=== PATIENT | female | born 1935 | race Two or more races ===

== ENCOUNTER 2017-05-11 21:09 | Emergency (ER) | payer OTHER ==
[~2017-05-11] VITALS: Ht 157.5 cm; Wt 81.6 kg
[~2017-05-11 21:09] MED LIST: AMLO5TAB2 PO; ASPI81TA27 PO; BENA40TA7 PO; CARV3.1240 PO; FURO40TA4 PO; ISOS60TA24 PO; POTA10TA51 PO; SIMV-13 PO
[2017-05-11 22:13] LABS: Basophils # (auto) 0 uL; Basophils % (auto) 0.4 % (0.0-2.0); Eosinophils # (auto) 0.4 uL; Eosinophils % (auto) 6.7 % (0.0-7.0); Hematocrit 39.3 % (36.0-46.0); Hemoglobin 12.6 g/dL (12.2-16.2); Lymphocytes # (auto) 1.5 uL; Lymphocytes % (auto) 28.6 % (10.0-50.0); Mean Corpuscular Hemoglobin 25.2 pg (28.0-32.0); Mean Corpuscular Hgb Conc. 32.1 g/dL (32.0-36.0); Mean Corpuscular Volume 78.4 fL (80.0-100.0); Mean Platelet Volume 8.4 fL (7.4-10.4); Monocytes # (auto) 0.4 uL; Monocytes % (auto) 8.3 % (0.0-12.0); Nucleated Red Blood Cells % 0.1 %; Platelet Count (auto) 245 10^3/uL (140-450); Red Cell Distribution Width 14.9 % (11.6-16.0); White Blood Cell 5.3 10^3/uL (4.4-10.8)
[2017-05-11 22:14] LABS: Temperature: 22.2 C (20.0-25.0)
[2017-05-11 22:27] LABS: Albumin 3.5 g/dL (3.4-5.0); Alkaline Phosphatase 94 U/L (45-117); Anion Gap 7 (5-15); Aspartate Aminotransferase 41 U/L (15-37); BUN/Creatinine Ratio 16.5; Bilirubin, Total 0.2 mg/dL (0.2-1.0); Blood Urea Nitrogen 14 mg/dL (7-18); Calcium 9.7 mg/dL (8.5-10.1); Carbon Dioxide 27 mmol/L (21-32); Chloride 106 mmol/L (98-107); GFR African American 83 mL/min; GFR Non-African American 69 mL/min; Glucose 135 mg/dL (74-106); Potassium 3.8 mmol/L (3.5-5.1); Sodium 140 mmol/L (136-145); Total Protein 7.4 g/dL (6.4-8.2)
[2017-05-11 22:50] LABS: Urine Bilirubin Negative (Negative); Urine Blood Negative /uL (Negative); Urine Color Yellow (Yellow); Urine Glucose Normal (Normal); Urine Hyaline Cast FEW /lpf (0 - 2); Urine Ketone Negative (Negative); Urine Mucus FEW (None Seen); Urine Nitrite Negative (Negative); Urine RBC 1 /hpf (0 - 4); Urine Squamous Epithelial Cell FEW /hpf (<5); Urine Urobilinogen Normal (Negative); Urine pH 5.5 (5.0-8.0)
[2017-05-12 04:23] VITALS: BP 141/81
== END 2017-05-12 04:40 | disposition home or self-care (01) ==
LOC: ER 21:11
DX: R07.89 Other chest pain (principal); N39.0 Urinary tract infection, site not specified; I11.0 Hypertensive heart disease with heart failure; I50.9 Heart failure, unspecified; E78.5 Hyperlipidemia, unspecified; Z88.0 Allergy status to penicillin; Z91.02 Food additives allergy status
CPT/HCPCS: 36415; 70450; 71020; 80053; 81001; 83880; 84484; 85025; 93005

== ENCOUNTER 2021-03-31 02:01 | Inpatient (IN) | payer OTHER ==
[~2021-03-31] VITALS: Ht 152.4 cm; Wt 85.1 kg
[~2021-03-31 02:01] MED LIST changes: +AMLO-489 PO; -AMLO5TAB2 PO; +ASPI-543 PO; -ASPI81TA27 PO; -BENA40TA7 PO; +BENA40TA8 PO
[2021-03-31 02:56] LABS: Basophils # (auto) 0 10 ^3/uL (0-0.2); Basophils % (auto) 0.4 % (0.0-2.0); Eosinophils # (auto) 0.3 10 ^3/uL (0-0.8); Mean Corpuscular Hemoglobin 26.7 pg (28.0-32.0); Mean Corpuscular Hgb Conc. 33.5 g/dL (32.0-36.0); Monocytes # (auto) 0.4 10 ^3/uL (0-1.3); Neutrophils # (auto) 3.7 10 ^3/uL (1.6-8.6)
[2021-03-31 02:58] LABS: Eosinophils % (auto) 4.6 % (0.0-7.0); Hematocrit 34.4 % (36.0-46.0); Hemoglobin 11.5 g/dL (12.2-16.2); Lymphocytes # (auto) 1.6 10 ^3/uL (0.4-5.4); Lymphocytes % (auto) 26.2 % (10.0-50.0); Mean Corpuscular Volume 79.9 fL (80.0-100.0); Monocytes % (auto) 7.3 % (0.0-12.0); Neutrophils % (auto) 61.5 % (37.0-80.0); Nucleated Red Blood Cells % 0.1 %; Red Blood Cells 4.31 10^6/uL (4.0-5.20); Red Cell Distribution Width 15.1 % (11.8-14.3)
[2021-03-31 03:11] LABS: INR 1.08 (0.9-1.15); Partial Thromboplastin Time 29.6 sec (23.0-31.2)
[2021-03-31 03:12] LABS: Albumin 3.2 g/dL (3.4-5.0); Anion Gap 7 (5-15); Blood Urea Nitrogen 19 mg/dL (7-18); Carbon Dioxide 24 mmol/L (21-32); Chloride 109 mmol/L (98-107); Magnesium 2.2 mg/dL (1.6-2.6); Potassium 3.7 mmol/L (3.5-5.1); Sodium 140 mmol/L (136-145)
[2021-03-31 03:15] LABS: Alanine Aminotransferase 22 U/L (13-56); BUN/Creatinine Ratio 22.1; Calcium 9.3 mg/dL (8.5-10.1); GFR African American 81 mL/min; GFR Non-African American 67 mL/min; Glucose 98 mg/dL (74-106)
[2021-03-31 03:20] LABS: Alkaline Phosphatase 61 U/L (45-117); Aspartate Aminotransferase 30 U/L (15-37); Bilirubin, Total 0.3 mg/dL (0.2-1.0); Total Protein 6.6 g/dL (6.4-8.2)
[2021-03-31] MEDS ORDERED: IOHEXOL 350 MG/ML 100ML IJ ONE ×2 (03:37→10:27)
[2021-03-31] MEDS ORDERED: ASPirin 325 MG TAB PO ONE (06:30)
[2021-03-31] MEDS ORDERED: FUROSEMIDE 20 MG/2 ML VIAL IV ONE (06:45)
[2021-03-31 08:20] LABS: Urine Bacteria NONE SEEN /hpf (None Seen); Urine Blood Negative /uL (Negative); Urine Specific Gravity 1.011 (1.001-1.035); Urine WBC 2 /hpf (0 - 5)
[2021-03-31] MEDS ORDERED: MORPHINE SULF INJ 2 MG/ML SYRINGE 1ML IV PRN (11:00)
[2021-03-31] MEDS ORDERED: NITROGLYCERIN 0.4 MG SL TAB SL PRN (11:00)
[2021-03-31] MEDS ORDERED: DEXTROSE (50%) 50ML SYRG IV PRN (11:15)
[2021-03-31] MEDS ORDERED: ACETAMINOPHEN 500 MG TAB PO PRN (11:15)
[2021-03-31] MEDS ORDERED: ONDANSETRON HCL 4 MG/2 ML VIAL IV PRN (11:15)
[2021-03-31] MEDS ORDERED: ENOXAPARIN SOD 80 MG/0.8ML SYRINGE SC ONE ×2 (11:15→12:15)
[2021-03-31] MEDS ORDERED: LACTULOSE 20Gm/30ML SOLN PO PRN (11:15)
[2021-03-31] MEDS: ACCU-CHEK COMFORT CURVE STRIP VI SCH ×3 (11:44→22:06)
[2021-03-31] MEDS: SODIUM CHLOR 0.9% PF (SALINE LOCK) 10ML VIAL/SYR IV SCH ×2 (14:00→22:22)
[2021-03-31 15:00] VITALS: BP 129/59
[2021-03-31] MEDS ORDERED: SOTA80TA PO (15:35)
[2021-03-31] MEDS ORDERED: ESOM20CA PO (15:35)
[2021-03-31] MEDS ORDERED: DOXY100C2 PO (15:35)
[2021-03-31] MEDS ORDERED: APIX5TAB PO (15:35)
[2021-03-31] MEDS ORDERED: CAR3125T OR (15:35)
[2021-03-31] MEDS ORDERED: AMLO-489 PO (15:35)
[2021-03-31 17:00] VITALS: BP 100/65
[2021-03-31 22:00] VITALS: BP 118/68
[2021-03-31] MEDS ORDERED: ATORVASTATIN 20 MG TAB PO SCH (22:00)
[2021-03-31] MEDS: ENOXAPARIN SOD 80 MG/0.8ML SYRINGE SC SCH (22:06)
[2021-03-31] MEDS: ISOSORBIDE MONONITRATE ER 60 MG TAB PO SCH (22:07)
[2021-03-31] MEDS: ATORVASTATIN 20 MG TAB PO SCH (22:07)
[2021-04-01 05:00] VITALS: BP 117/58
[2021-04-01] MEDS: SODIUM CHLOR 0.9% PF (SALINE LOCK) 10ML VIAL/SYR IV SCH ×3 (06:00→22:26)
[2021-04-01 06:26] LABS: Eosinophils # (auto) 0.2 10 ^3/uL (0-0.8); Eosinophils % (auto) 5.3 % (0.0-7.0)
[2021-04-01 06:30] LABS: Basophils # (auto) 0 10 ^3/uL (0-0.2); Basophils % (auto) 0.5 % (0.0-2.0); Hematocrit 32.8 % (36.0-46.0); Lymphocytes # (auto) 1.3 10 ^3/uL (0.4-5.4); Lymphocytes % (auto) 31.5 % (10.0-50.0); Mean Corpuscular Hemoglobin 26.9 pg (28.0-32.0); Mean Corpuscular Hgb Conc. 33.5 g/dL (32.0-36.0); Mean Corpuscular Volume 80.4 fL (80.0-100.0); Monocytes # (auto) 0.4 10 ^3/uL (0-1.3); Monocytes % (auto) 8.4 % (0.0-12.0); Neutrophils # (auto) 2.3 10 ^3/uL (1.6-8.6); Neutrophils % (auto) 54.3 % (37.0-80.0); Nucleated Red Blood Cells % 0.1 %; Red Blood Cells 4.08 10^6/uL (4.0-5.20); White Blood Cell 4.2 10^3/uL (4.4-10.8)
[2021-04-01] MEDS: ACCU-CHEK COMFORT CURVE STRIP VI SCH ×4 (06:44→22:27)
[2021-04-01 06:50] LABS: Albumin 2.9 g/dL (3.4-5.0); BUN/Creatinine Ratio 20.5; Calcium 9.4 mg/dL (8.5-10.1); Potassium 3.9 mmol/L (3.5-5.1)
[2021-04-01 06:53] LABS: Bilirubin, Total 0.4 mg/dL (0.2-1.0); Total Protein 6.1 g/dL (6.4-8.2)
[2021-04-01 09:00] VITALS: BP 134/60
[2021-04-01] MEDS ORDERED: ENALAPRIL MALEATE 2.5 MG TAB PO SCH (10:00)
[2021-04-01] MEDS ORDERED: ENOXAPARIN SOD 40 MG/0.4 ML SYRINGE SC SCH (10:00)
[2021-04-01] MEDS: POTASSIUM CHL 20 Meq TABLET PO SCH (10:53)
[2021-04-01] MEDS: BENAZEPRIL HCL 10 MG TAB PO SCH (10:55)
[2021-04-01] MEDS: ASPirin 81 mg TAB PO SCH (10:55)
[2021-04-01] MEDS: amLODIPine BESYLATE 5 MG TAB PO SCH (10:55)
[2021-04-01] MEDS: NITROGLYCERIN 0.2MG/HR TOPICAL PATCH TD SCH (10:59)
[2021-04-01] MEDS: ENOXAPARIN SOD 80 MG/0.8ML SYRINGE SC SCH ×2 (11:00→22:31)
[2021-04-01 13:00] VITALS: BP 166/99
[2021-04-01] MEDS: FUROSEMIDE 40 MG/4 ML VIAL IV SCH (16:14)
[2021-04-01 16:56] VITALS: BP 148/89
[2021-04-01 22:00] VITALS: BP 137/77
[2021-04-01] MEDS: ATORVASTATIN 20 MG TAB PO SCH (22:30)
[2021-04-01] MEDS: ISOSORBIDE MONONITRATE ER 60 MG TAB PO SCH (22:30)
[2021-04-02 05:00] VITALS: BP 148/74
[2021-04-02] MEDS: SODIUM CHLOR 0.9% PF (SALINE LOCK) 10ML VIAL/SYR IV SCH ×3 (05:15→21:42)
[2021-04-02] MEDS: ACCU-CHEK COMFORT CURVE STRIP VI SCH ×4 (06:27→21:45)
[2021-04-02 09:30] VITALS: BP 122/56
[2021-04-02] MEDS: ENOXAPARIN SOD 80 MG/0.8ML SYRINGE SC SCH ×2 (10:00→21:46)
[2021-04-02 12:30] VITALS: BP 127/66
[2021-04-02] MEDS ORDERED: REGADENOSON 0.4 MG/5 ML SYRG IV ONE (12:30)
[2021-04-02 13:55] VITALS: BP 174/88
[2021-04-02] MEDS: ASPirin 81 mg TAB PO SCH (15:58)
[2021-04-02] MEDS: POTASSIUM CHL 20 Meq TABLET PO SCH (15:58)
[2021-04-02] MEDS: FUROSEMIDE 40 MG/4 ML VIAL IV SCH (15:58)
[2021-04-02] MEDS: BENAZEPRIL HCL 10 MG TAB PO SCH (15:59)
[2021-04-02] MEDS: NITROGLYCERIN 0.2MG/HR TOPICAL PATCH TD SCH (16:00)
[2021-04-02 16:50] VITALS: BP 133/72
[2021-04-02] MEDS: amLODIPine BESYLATE 5 MG TAB PO SCH (17:27)
[2021-04-02] MEDS: traMADol HCL 50 MG TAB PO PRN (17:33)
[2021-04-02] MEDS: ISOSORBIDE MONONITRATE ER 60 MG TAB PO SCH (21:45)
[2021-04-02] MEDS: ATORVASTATIN 20 MG TAB PO SCH (21:46)
[2021-04-02 22:00] VITALS: BP 122/57
[2021-04-03 05:00] VITALS: BP 120/58
[2021-04-03] MEDS: SODIUM CHLOR 0.9% PF (SALINE LOCK) 10ML VIAL/SYR IV SCH ×3 (06:01→21:38)
[2021-04-03] MEDS: ACCU-CHEK COMFORT CURVE STRIP VI SCH ×4 (06:17→21:39)
[2021-04-03 09:29] VITALS: BP 91/54
[2021-04-03] MEDS: ENOXAPARIN SOD 80 MG/0.8ML SYRINGE SC SCH (10:00)
[2021-04-03] MEDS: BENAZEPRIL HCL 10 MG TAB PO SCH (10:08)
[2021-04-03] MEDS: amLODIPine BESYLATE 5 MG TAB PO SCH (10:08)
[2021-04-03] MEDS: POTASSIUM CHL 20 Meq TABLET PO SCH (10:09)
[2021-04-03] MEDS: ASPirin 81 mg TAB PO SCH (10:09)
[2021-04-03] MEDS: NITROGLYCERIN 0.2MG/HR TOPICAL PATCH TD SCH (10:10)
[2021-04-03] MEDS: FUROSEMIDE 40 MG/4 ML VIAL IV SCH (10:10)
[2021-04-03 12:40] VITALS: BP 120/58
[2021-04-03 16:53] VITALS: BP 118/56
[2021-04-03] MEDS: ATORVASTATIN 20 MG TAB PO SCH (21:38)
[2021-04-03] MEDS: ISOSORBIDE MONONITRATE ER 60 MG TAB PO SCH (21:38)
[2021-04-03 22:00] VITALS: BP 159/77
[2021-04-04 05:00] VITALS: BP 150/61
[2021-04-04] MEDS: SODIUM CHLOR 0.9% PF (SALINE LOCK) 10ML VIAL/SYR IV SCH ×3 (06:20→22:03)
[2021-04-04] MEDS: ACCU-CHEK COMFORT CURVE STRIP VI SCH ×2 (06:21→11:12)
[2021-04-04 08:00] VITALS: BP 137/84
[2021-04-04 09:00] VITALS: BP 137/84
[2021-04-04] MEDS: POTASSIUM CHL 20 Meq TABLET PO SCH (09:12)
[2021-04-04] MEDS: traMADol HCL 50 MG TAB PO PRN (09:12)
[2021-04-04] MEDS: BENAZEPRIL HCL 10 MG TAB PO SCH (09:12)
[2021-04-04] MEDS: amLODIPine BESYLATE 5 MG TAB PO SCH (09:13)
[2021-04-04] MEDS: FUROSEMIDE 40 MG/4 ML VIAL IV SCH (09:14)
[2021-04-04] MEDS: NITROGLYCERIN 0.2MG/HR TOPICAL PATCH TD SCH (09:14)
[2021-04-04] MEDS ORDERED: GOLYTELY 4L KIT PO ONE (10:00)
[2021-04-04] MEDS ORDERED: ALPRAZolam 0.25 MG TAB PO PRN (11:15)
[2021-04-04 13:03] VITALS: BP 125/67
[2021-04-04 17:35] VITALS: BP 131/60
[2021-04-04 22:00] VITALS: BP 141/76
[2021-04-04] MEDS: ISOSORBIDE MONONITRATE ER 60 MG TAB PO SCH (22:03)
[2021-04-04] MEDS: ATORVASTATIN 20 MG TAB PO SCH (22:03)
[2021-04-05 05:00] VITALS: BP 128/53
[2021-04-05] MEDS: SODIUM CHLOR 0.9% PF (SALINE LOCK) 10ML VIAL/SYR IV SCH ×3 (05:31→21:28)
[2021-04-05 05:33] LABS: Basophils # (auto) 0 10 ^3/uL (0-0.2); Eosinophils # (auto) 0.2 10 ^3/uL (0-0.8); Monocytes # (auto) 0.3 10 ^3/uL (0-1.3); Neutrophils # (auto) 2.1 10 ^3/uL (1.6-8.6); Red Blood Cells 4.09 10^6/uL (4.0-5.20)
[2021-04-05 05:38] LABS: Basophils % (auto) 0.5 % (0.0-2.0); Eosinophils % (auto) 5.8 % (0.0-7.0); Hematocrit 32.7 % (36.0-46.0); Hemoglobin 10.9 g/dL (12.2-16.2); Lymphocytes # (auto) 1.2 10 ^3/uL (0.4-5.4); Lymphocytes % (auto) 31.3 % (10.0-50.0); Mean Corpuscular Hemoglobin 26.6 pg (28.0-32.0); Mean Corpuscular Hgb Conc. 33.3 g/dL (32.0-36.0); Mean Corpuscular Volume 79.9 fL (80.0-100.0); Monocytes % (auto) 8.8 % (0.0-12.0); Neutrophils % (auto) 53.6 % (37.0-80.0); Nucleated Red Blood Cells % 0.3 %; Red Cell Distribution Width 14.4 % (11.8-14.3); White Blood Cell 3.8 10^3/uL (4.4-10.8)
[2021-04-05 05:49] LABS: INR 1.09 (0.9-1.15); Partial Thromboplastin Time 25.5 sec (23.6-33.0)
[2021-04-05 05:55] LABS: BUN/Creatinine Ratio 15.9; Calcium 8.9 mg/dL (8.5-10.1); Magnesium 2.3 mg/dL (1.6-2.6); Potassium 3.9 mmol/L (3.5-5.1)
[2021-04-05 08:19] VITALS: BP 146/72
[2021-04-05] MEDS: POTASSIUM CHL 20 Meq TABLET PO SCH (10:00)
[2021-04-05] MEDS: FUROSEMIDE 40 MG/4 ML VIAL IV SCH (10:00)
[2021-04-05] MEDS: NITROGLYCERIN 0.2MG/HR TOPICAL PATCH TD SCH (10:01)
[2021-04-05] MEDS: BENAZEPRIL HCL 10 MG TAB PO SCH (10:02)
[2021-04-05] MEDS ORDERED: SODIUM CHLORIDE LOCK 10 ML ONE (10:02)
[2021-04-05] MEDS: amLODIPine BESYLATE 5 MG TAB PO SCH (10:03)
[2021-04-05] MEDS ORDERED: diphenhdrAMINE HCL 50 MG/1 ML VL ONE (10:03)
[2021-04-05] MEDS: MIDAZOLAM HCL 5 MG/ML-1ML VIAL ONE ×4 (12:50→13:02)
[2021-04-05] MEDS: fentaNYL CITRATE 100 MCG/2 ML VL ONE ×3 (12:50→12:59)
[2021-04-05 16:44] VITALS: BP 135/64
[2021-04-05] MEDS: ISOSORBIDE MONONITRATE ER 60 MG TAB PO SCH (21:27)
[2021-04-05] MEDS: ATORVASTATIN 20 MG TAB PO SCH (21:27)
[2021-04-05 22:07] VITALS: BP 112/65
[2021-04-06 05:14] VITALS: BP 135/66
[2021-04-06] MEDS: SODIUM CHLOR 0.9% PF (SALINE LOCK) 10ML VIAL/SYR IV SCH (05:36)
[2021-04-06 08:50] VITALS: BP 146/67
[2021-04-06] MEDS: POTASSIUM CHL 20 Meq TABLET PO SCH (10:00)
[2021-04-06] MEDS: BENAZEPRIL HCL 10 MG TAB PO SCH (10:01)
[2021-04-06] MEDS: FUROSEMIDE 40 MG/4 ML VIAL IV SCH (10:02)
[2021-04-06] MEDS: amLODIPine BESYLATE 5 MG TAB PO SCH (10:02)
[2021-04-06] MEDS: NITROGLYCERIN 0.2MG/HR TOPICAL PATCH TD SCH (10:03)
[2021-04-06] MEDS ORDERED: APIXABAN 5 MG TAB PO ONE (11:45)
[2021-04-06 13:00] VITALS: BP 129/78
[2021-04-06 14:15] VITALS: BP 129/78
== END 2021-04-06 15:26 | disposition home or self-care (01) | DRG 313 ==
LOC: ER 02:01 → TELE-WESTW 11:04 → TELE-CENTR 04-06 04:57
PROVIDERS: ADMIT Internal Medicine; ATTEND Internal Medicine Geriatric Medicine
PROC: 0DJD8ZZ Inspection of Lower Intestinal Tract, Via Natural or Artificial Opening Endoscopic (ICD-10-PCS; principal; 2021-04-05 12:45)
DX: R07.9 Chest pain, unspecified (principal); K92.1 Melena; K57.30 Diverticulosis of large intestine without perforation or abscess without bleeding; I50.9 Heart failure, unspecified; I48.0 Paroxysmal atrial fibrillation; E66.01 Morbid (severe) obesity due to excess calories; E78.5 Hyperlipidemia, unspecified; F41.9 Anxiety disorder, unspecified; I11.0 Hypertensive heart disease with heart failure; K64.8 Other hemorrhoids; Z20.822 Contact with and (suspected) exposure to COVID-19; R00.1 Bradycardia, unspecified; Z95.0 Presence of cardiac pacemaker; Z85.3 Personal history of malignant neoplasm of breast; Z79.899 Other long term (current) drug therapy; Z90.12 Acquired absence of left breast and nipple; Z88.0 Allergy status to penicillin; Z91.018 Allergy to other foods; Z68.35 Body mass index [BMI] 35.0-35.9, adult
CPT/HCPCS: 36415; 45378; 71045; 71275; 78452; 80048; 80053; 81001; 82270; 82550; 82962; 83036; 83735; 83880; 84443; 84484; 85025; 85379; 85610; 85652; 85730; 87040; 87081; 87426; 93005; 93017; 93306; 96372; 96374; 97163; G0378; J2250

== ENCOUNTER 2023-04-05 17:26 | Emergency (ER) | payer OTHER ==
[~2023-04-05] VITALS: Ht 152.4 cm; Wt 77.0 kg
[~2023-04-05 17:26] MED LIST changes: -AMLO-489 PO; +AMLO1TAB22 PO; +APIX5TAB PO; -ASPI-543 PO; +BENA40TA70 PO; -BENA40TA8 PO; +CAR3125T OR; -CARV3.1240 PO; +DOXY100C4 PO; +ESOM20CA PO; -ISOS60TA24 PO; -SIMV-13 PO; +SIMV40TA18 PO; +SOTA80TA PO
[2023-04-05] MEDS ORDERED: MECLIZINE HCL 25 MG TAB PO ONE (18:15)
[2023-04-05 18:45] LABS: Basophils # (auto) 0 10 ^3/uL (0-0.2); Basophils % (auto) 0.4 % (0.0-2.0); Eosinophils # (auto) 0.2 10 ^3/uL (0-0.8); Eosinophils % (auto) 4.6 % (0.0-7.0); Hematocrit 35.2 % (36.0-46.0); Hemoglobin 11.3 g/dL (12.2-16.2); Lymphocytes # (auto) 1.3 10 ^3/uL (0.4-5.4); Lymphocytes % (auto) 26.9 % (10.0-50.0); Mean Corpuscular Hemoglobin 25.8 pg (28.0-32.0); Mean Corpuscular Hgb Conc. 32.2 g/dL (32.0-36.0); Mean Corpuscular Volume 80.1 fL (80.0-100.0); Monocytes # (auto) 0.3 10 ^3/uL (0-1.3); Monocytes % (auto) 6.5 % (0.0-12.0); Neutrophils # (auto) 3.1 10 ^3/uL (1.6-8.6); Neutrophils % (auto) 61.6 % (37.0-80.0); Nucleated Red Blood Cells % 0.1 %; Red Cell Distribution Width 14.8 % (11.8-14.3)
[2023-04-05 19:01] LABS: Albumin 3.4 g/dL (3.4-5.0); Calcium 9.2 mg/dL (8.5-10.1); Potassium 3.7 mmol/L (3.5-5.1)
[2023-04-05 19:05] LABS: Bilirubin, Total 0.3 mg/dL (0.2-1.0); Total Protein 6.9 g/dL (6.4-8.2)
[2023-04-05 23:52] LABS: Urine Bacteria FEW /hpf (None Seen); Urine Blood Negative /uL (Negative); Urine Clarity Clear (Clear); Urine Color Yellow (Yellow); Urine Mucus FEW (None Seen); Urine Protein, UAD Negative (Negative); Urine Specific Gravity 1.014 (1.001-1.035); Urine Urobilinogen Normal (Negative); Urine WBC 3 /hpf (0 - 5); Urine pH 6.5 (5.0-8.0)
[2023-04-06 01:29] VITALS: BP 194/88; PULSE 65; RESP 18; TEMP 97.8; O2SAT 94
[2023-04-06] MEDS ORDERED: cloNIDine HCL 0.1 MG TAB PO ONE (01:30)
[2023-04-06] MEDS ORDERED: OXYMETAZOLINE HCL 0.05 % NASAL SPRAY 15ML EACHNOSTRI ONE (02:15)
[2023-04-06] MEDS ORDERED: BENZ100C97 PO (02:23)
[2023-04-06] MEDS ORDERED: LORA-622 PO (02:23)
[2023-04-06] MEDS ORDERED: NITR-87 PO (02:23)
== END 2023-04-06 02:42 | disposition home or self-care (01) ==
LOC: ER 17:26
DX: N39.0 Urinary tract infection, site not specified (principal); J06.9 Acute upper respiratory infection, unspecified; I11.0 Hypertensive heart disease with heart failure; I50.9 Heart failure, unspecified; E78.5 Hyperlipidemia, unspecified
CPT/HCPCS: 36415; 70450; 80053; 81001; 85025; 99284; J8597; 93005

== ENCOUNTER 2023-04-07 23:58 | Emergency (ER) | payer OTHER ==
[~2023-04-07] VITALS: Ht 152.4 cm; Wt 76.0 kg
[~2023-04-07 23:58] MED LIST changes: +BENZ100C97 PO; +LORA-622 PO; +NITR-87 PO
[2023-04-08 01:24] LABS: Basophils # (auto) 0 10 ^3/uL (0-0.2); Eosinophils # (auto) 0.3 10 ^3/uL (0-0.8); Hemoglobin 11.2 g/dL (12.2-16.2); White Blood Cell 5.2 10^3/uL (4.4-10.8)
[2023-04-08 01:26] LABS: Basophils % (auto) 0.4 % (0.0-2.0); Hematocrit 35.2 % (36.0-46.0); Lymphocytes # (auto) 1.6 10 ^3/uL (0.4-5.4); Mean Corpuscular Hemoglobin 25.7 pg (28.0-32.0); Mean Corpuscular Hgb Conc. 31.8 g/dL (32.0-36.0); Mean Corpuscular Volume 80.9 fL (80.0-100.0); Monocytes # (auto) 0.5 10 ^3/uL (0-1.3); Monocytes % (auto) 8.9 % (0.0-12.0); Neutrophils # (auto) 2.8 10 ^3/uL (1.6-8.6); Neutrophils % (auto) 54.7 % (37.0-80.0); Red Blood Cells 4.35 10^6/uL (4.0-5.20); Red Cell Distribution Width 14.5 % (11.8-14.3)
[2023-04-08 01:40] LABS: Urine Bacteria NONE SEEN /hpf (None Seen); Urine Blood Negative /uL (Negative); Urine Clarity Clear (Clear); Urine Color Yellow (Yellow); Urine Protein, UAD Negative (Negative); Urine Specific Gravity 1.017 (1.001-1.035); Urine Urobilinogen Normal (Negative); Urine WBC 4 /hpf (0 - 5)
[2023-04-08 01:45] LABS: Albumin 3.4 g/dL (3.4-5.0); BUN/Creatinine Ratio 23.4 (10.0-20.0); Calcium 9.4 mg/dL (8.5-10.1); Magnesium 2.2 mg/dL (1.6-2.6)
[2023-04-08 01:47] LABS: Bilirubin, Total 0.2 mg/dL (0.2-1.0); Total Protein 6.7 g/dL (6.4-8.2)
[2023-04-08] MEDS ORDERED: NITR-87 PO (08:13)
[2023-04-08 08:15] VITALS: BP 166/50; PULSE 65; RESP 16; TEMP 98; O2SAT 95
== END 2023-04-08 08:17 | disposition home or self-care (01) ==
LOC: ER 23:59
DX: N39.0 Urinary tract infection, site not specified (principal); R42 Dizziness and giddiness; R07.89 Other chest pain; R06.02 Shortness of breath; E78.5 Hyperlipidemia, unspecified; I11.0 Hypertensive heart disease with heart failure; I50.9 Heart failure, unspecified; Z85.9 Personal history of malignant neoplasm, unspecified; Z90.710 Acquired absence of both cervix and uterus; Z98.890 Other specified postprocedural states; Z88.0 Allergy status to penicillin; Z79.899 Other long term (current) drug therapy; Z91.02 Food additives allergy status
CPT/HCPCS: 36415; 70450; 71045; 80053; 81001; 83735; 83880; 84484; 85025; 93005